=== PATIENT | male | born 1950 ===

== ENCOUNTER → 2019-02-01 | Outpatient (CLI) | payer MEDICARE ==
[~2019-02-01] MED LIST: ASPI81CH PO; Calcium Citrat250 MG PO; LOSA50 PO; PRED10 PO; RANI150 PO; SIMV40 PO; Toprol Xl50 MG PO; UBID100 PO
== END | disposition home or self-care (01) ==
LOC: PLD 12:05 → LAB SHORT 12:05
DX: D48.5 Neoplasm of uncertain behavior of skin (principal)
CPT/HCPCS: 88305

== ENCOUNTER → 2020-07-28 | Outpatient (CLI) | payer MEDICARE | LOC: LAB SHORT 10:47 → LAB 10:47 | DX: D48.5 Neoplasm of uncertain behavior of skin (principal) | CPT/HCPCS: 88305 ==